=== PATIENT | female | born 1950 | race Caucasian/White ===

== ENCOUNTER 2018-05-31 16:49 | Emergency (ER) | payer MEDICARE, OTHER ==
[2018-05-31 17:02] VITALS: BP 137/80
--- NOTE | 2018-05-31 17:27 | EDM.PDOC ---
ED HPI GENERAL MEDICAL PROBLEM - General Chief Complaint: Skin Complaint Stated Complaint: RED/HOT ADRIAN ON LEFT BACK LEG Time Seen by Provider: 05/31/18 17:11 Source of Information: Reports: Patient History Limitations: Reports: No Limitations - History of Present Illness INITIAL COMMENTS - FREE TEXT/NARRATIVE: 67-year-old female presents the ED for evaluation of a large red spot which is moderately painful on the posterior aspect of her left leg. She states about 4 days ago did she noted a few small red spots which she will not call pustules in the popliteal fossa. Subsequently they seem to spread and the entire posterior aspect of her left thigh and popliteal fossa have not become very red and swollen and painful. Every step is painful. She doesn't feel ill in terms of flulike symptoms or appetite remains good. She has no chills or fever. She has never had sialitis before. 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 She is not diabetic. Onset: Gradual Onset Date: 05/28/18 Duration: Day(s):, Constant, Getting Worse Location: Reports: Lower Extremity, Left Quality: Reports: Ache, Burning, Throbbing Severity: Moderate (Slight throb. Out of 10) Improves with: Reports: Rest Worsens with: Reports: Other (Walking in her clothing rubbing on it bothers her. 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.) Left Leg Pain Score (Numeric/FACES): 8 - Related Data Allergies Allergy/AdvReac Type Severity Reaction Status Date / Time pineapple Allergy Hives Verified 05/31/18 16:57 Home Meds: Home Meds Clindamycin HCl 300 mg PO TID #21 capsule 05/31/18 [Rx] Doxycycline [Vibramycin] 100 mg PO BID #20 cap 05/31/18 [Rx] Past Medical History - Past Health History Medical/Surgical History: Denies Medical/Surgical History HEAD OF STOCK History: Reports: - Past Surgical History Female Surgical History: Reports: Section, Hysterectomy Social & Family History - Tobacco Use Smoking Status *Q: Former Smoker Used Tobacco, but Quit: Yes Month/Year Tobacco Last Used: 1998 - Recreational Drug Use Recreational Drug Use: No - Living Situation & Occupation Living situation: Reports: Occupation: Retired ED ROS GENERAL - Review of Systems Review Of Systems: See Below Constitutional: Denies: Fever, Chills, Malaise, Weakness, Fatigue, Decreased Appetite, Weight Loss HEENT: Reports: Glasses Respiratory: Reports: No Symptoms Cardiovascular: Reports: No Symptoms Endocrine: Reports: No Symptoms GI/Abdominal: Reports: No Symptoms : Reports: Frequency Musculoskeletal: Reports: Other (Pain left leg popliteal fossa and posterior left thigh) Skin: Reports: Erythema (There are diffuse erythema popliteal fossa and posterior left thigh almost up to the groin.) Neurological: Reports: No Symptoms Psychiatric: Reports: No Symptoms Hematologic/Lymphatic: Reports: No Symptoms Immunologic: Reports: No Symptoms ED EXAM, SKIN/RASH Exam: See Below Exam Limited By: No Limitations General Appearance: Alert, WD/WN, No Apparent Distress, Other (Vital signs show a temperature of 37.7 but she does not feel that warm to palpation.) Eye Exam: Bilateral Eye: Normal Inspection Respiratory/Chest: No Respiratory Distress, Lungs Clear, Normal Breath Sounds, No Accessory Muscle Use Cardiovascular: Normal Peripheral Pulses, Regular Rate, Rhythm, No Edema, No Gallop, No Murmur, No Rub Peripheral Pulses: 2+: Posterior Tibial (L), Posterior Tibial (R), Dorsalis Pedis (L), Dorsalis Pedis (R) GI/Abdominal: Normal Bowel Sounds, Soft, Non-Tender, No Organomegaly, No Abnormal Bruit, No Mass, Pelvis Stable, Other (Previous surgery of that of a cholecystectomy hysterectomy.) Back Exam: Normal Inspection, Full Range of Motion, Paraspinal Tenderness. No: CVA Tenderness (L), CVA Tenderness (R) Extremities: Other ( is significant erythema left popliteal fossa that spreads up the posterior medial thigh, almost to the buttock crease) Neurological: Alert, Oriented, CN II-XII Intact, Normal Cognition, No Motor/ Sensory Deficits, Abnormal Gait Psychiatric: Normal Affect, Normal Mood (Mild limping gait) Skin: Warm, Dry, Intact, Normal Color, No Rash Location, Skin: Lower Extremity, Left Characteristics: Macular, Confluent, Other (Erythematous) Associated features: Warmth, Crusting Course - Vital Signs Last Recorded V/S: Last Vital Signs Temp 37.7 C 05/31/18 16:57 Pulse 88 05/31/18 16:57 Resp 18 05/31/18 16:57 BP 137/80 05/31/18 16:57 Pulse Ox 100 05/31/18 16:57 - Orders/Labs/Meds Orders: Active Orders 24 hr Category Date Time Status Peripheral IV Care [RC] . DIRECTED Care 05/31/18 17:38 Active CULTURE BLOOD [BC] Stat Lab 05/31/18 17:55 Received CULTURE BLOOD [BC] Stat Lab 05/31/18 18:05 Received Sodium Chloride 0.9% [Saline Flush] Med 05/31/18 17:37 Active 10 ml FLUSH ASDIRECTED PRN Blood Culture x2 Reflex Set [OM.PC] Stat Oth 05/31/18 17:37 Ordered Peripheral IV Insertion Adult [OM.PC] Stat Oth 05/31/18 17:38 Ordered Medication Orders Sodium Chloride (Saline Flush) 10 ml FLUSH ASDIRECTED PRN PRN Reason: Keep Vein Open Last Admin: 05/31/18 17:53 Dose: 10 ml Labs: Laboratory Tests 05/31/18 05/31/18 05/31/18 Range/Units 17:44 17:44 17:44 WBC 7.44 (3.98-10.04) K/mm3 RBC 4.43 (3.98-5.22) M/mm3 Hgb 13.0 (11.2-15.7) gm/L Hct 39.5 (34.1-44.9) % MCV 89.2 (79.4-94.8) fl MCH 29.3 (25.6-32.2) pg MCHC 32.9 (32.2-35.5) g/dl RDW Std Deviation 52.3 H (36.4-46.3) fL Plt Count 184 (182-369) K/mm3 MPV 10.6 (9.4-12.3) fl Neutrophils % (Manual) 59 (40-60) % Band Neutrophils % 0 (0-10) % Lymphocytes % (Manual) 29 (20-40) % Atypical Lymphs % 0 % Monocytes % (Manual) 11 H (2-10) % Eosinophils % (Manual) 0 L (0.7-5.8) % Basophils % (Manual) 1 (0.1-1.2) Platelet Estimate Adequate Plt Morphology Comment Normal RBC Morph Comment Normal ESR 17 (0-20) mm/hr Sodium 139 (136-145) mEq/L Potassium 3.8 (3.5-5.1) mEq/L Chloride 105 (98-107) mEq/L Carbon Dioxide 27 (21-32) mEq/L Anion Gap 10.8 (5-15) BUN 15 (7-18) mg/dL Creatinine 0.9 (0.55-1.02) mg/dL Est Cr Clr Drug Dosing 44.52 mL/min Estimated GFR (MDRD) > 60 (>60) mL/min BUN/Creatinine Ratio 16.7 (14-18) Glucose 114 (80-115) mg/dL Calcium 9.0 (8.5-10.1) mg/dL Total Bilirubin 0.5 (0.2-1.0) mg/dL AST 14 L (15-37) U/L ALT 20 (14-59) U/L Alkaline Phosphatase 79 (46-116) U/L C-Reactive Protein 4.9 H* (<1.0) mg/dL Total Protein 7.6 (6.4-8.2) g/dl Albumin 3.4 (3.4-5.0) g/dl Globulin 4.2 gm/dL Albumin/Globulin Ratio 0.8 L (1-2) Meds: Medications Generic Name Dose Route Start Last Admin Trade Name Freq PRN Reason Stop Dose Admin Sodium Chloride 10 ml 05/31/18 17:37 05/31/18 17:53 Saline Flush FLUSH 10 ml ASDIRECTED PRN Administration Keep Vein Open Discontinued Medications Generic Name Dose Route Start Last Admin Trade Name Freq PRN Reason Stop Dose Admin Clindamycin Phosphate Confirm 05/31/18 17:47 05/31/18 17:53 Cleocin Administered 05/31/18 17:48 900 mg Dose Administration 900 mg .ROUTE .STK-MED ONE Doxycycline Hyclate 200 mg 05/31/18 17:57 05/31/18 18:08 Vibramycin PO 05/31/18 17:58 200 mg ONETIME ONE Administration Clindamycin Phosphate 900 mg/ 106 mls @ 100 mls/hr 05/31/18 17:38 05/31/18 17 :54 Sodium Chloride IV 05/31/18 18:41 Not Given ONETIME ONE Sodium Chloride Confirm 05/31/18 17:48 05/31/18 17:53 Normal Saline Administered 05/31/18 17:49 100 mls/hr Dose Administration 100 mls @ as directed .ROUTE .K-MED ONE - Radiology Interpretation Free Text/Narrative:: 67-year-old female presents to the ED with a red swollen left lower extremity. She states it started 4 days ago with a couple of papules in the popliteal fossa that subsequently seem to come confluent and now redness is spreading up the posterior aspect of her thigh almost up to the lower buttock crease. She registered a temperature of 37.7 but she has no signs of systemic illness. The source of the infection is unclear. It seems to have originated in the crease in the popliteal fossa. Skin overlaps in this area and I suspect it may have become secondarily infected. She will therefore have to have coverage for possible MRSA infection. Plan will be to do lab work including blood cultures 2. She'll be given clindamycin 900 mg IV and doxycycline 200 mg by mouth. - Re-Assessments/Exams Free Text/Narrative Re-Assessment/Exam: 05/31/18 18:29 Labs reveal a normal white count at 7.44 with 59% neutrophils and 0% band cells therefore no laboratory evidence of systemic infection.. Hemoglobin is 13.0 with hematocrit of 39.5. Platelet count 184,000. Sodium 139 with potassium 3.8. Chloride 105 with a bicarbonate 27. And a gap is 10.8 BUN was 15 with a creatinine of 0.9. GFR remains greater than 60. Glucose is 114 calcium 9.0. Liver function normal C-reactive protein mildly elevated at 4.9. Therefore the patient will be discharged home on doxycycline 100 mg twice daily for 10 days and clindamycin 300 mg 3 times a day for 7 days to clear up sialitis. Will have her follow-up with her personal care physician in 10 days' time or sooner if not looking markedly improved in 72 hours time. May continue use Motrin 600 mg every 6 hours to reduce pain and inflammation and fever if it develops. Departure - Departure Time of Disposition: 19:10 Disposition: Home, Self-Care 01 Condition: Fair Clinical Impression: Cellulitis of left leg without foot - Discharge Information *PRESCRIPTION DRUG MONITORING PROGRAM REVIEWED*: Not Applicable *COPY OF PRESCRIPTION DRUG MONITORING REPORT IN PATIENT SALMA: Not Applicable Prescriptions: Clindamycin HCl 300 mg PO TID #21 capsule Doxycycline [Vibramycin] 100 mg PO BID #20 cap Instructions: Cellulitis, Adult Referrals: PCP,Not In Area [Primary Care Provider] - Forms: ED Department Discharge Additional Instructions: Evaluation in the emergency him today in regards to development of infection on the posterior aspect of your left leg starting behind the knee and traveling up towards the buttock. The exact reason for this infection do occur is unclear. It may have been a scratch or a small poke anytime within the last 2 weeks to institute this kind of infection. Infection is called cellulitis which means spreading infection under the skin. It is almost always due to a staph aureus infection or sometimes more serious infection called methicillin-resistant staph aureus infection. Your lab tests proved that there was no signs of serious infection your bloodstream at this time. blood markers for inflammation were mildly elevated. Therefore you were treated with a dose of intravenous antibiotic clindamycin 900 mg and given doxycycline 200 mg by mouth. He will need to continue oral antibiotics clindamycin 300 mg 3 times daily for 7 days and doxycycline 100 mg twice daily for 10 days to clear up infection. May use Motrin 600 mg every 6 hours as needed to reduce pain and inflammation and/or fever.Suggest follow up with personal care physician if not markedly improved in 72 hours time otherwise in 10 days' time to make sure the infection has been completely eradicated. - My Orders Last 24 Hours: My Active Orders 05/31/18 17:37 Sodium Chloride 0.9% [Saline Flush] 10 ml FLUSH ASDIRECTED PRN Blood Culture x2 Reflex Set [OM.PC] Stat 05/31/18 17:38 Peripheral IV Care [RC] . DIRECTED Peripheral IV Insertion Adult [OM.PC] Stat 05/31/18 17:55 CULTURE BLOOD [BC] Stat 05/31/18 18:05 CULTURE BLOOD [BC] Stat - Assessment/Plan Last 24 Hours: My Active Orders 05/31/18 17:37 Sodium Chloride 0.9% [Saline Flush] 10 ml FLUSH ASDIRECTED PRN Blood Culture x2 Reflex Set [OM.PC] Stat 05/31/18 17:38 Peripheral IV Care [RC] . DIRECTED Peripheral IV Insertion Adult [OM.PC] Stat 05/31/18 17:55 CULTURE BLOOD [BC] Stat 05/31/18 18:05 CULTURE BLOOD [BC] Stat
[2018-05-31] MEDS ORDERED: Sodium Chloride 0.9% 10 ML Syringe FLUSH PRN (17:37)
[2018-05-31] MEDS ORDERED: Clindamycin Phosphate 900 MG in Sodium Chloride 0.9% 100 ML IV ONE (17:38)
[2018-05-31] MEDS ORDERED: Clindamycin Phosphate 900 MG/6 ML SDV ONE (17:47)
[2018-05-31] MEDS ORDERED: Sodium Chloride 0.9% 100 ML ONE (17:48)
[2018-05-31] MEDS ORDERED: Doxycycline 100 MG Cap PO ONE (17:57)
== END 2018-05-31 19:55 | disposition home or self-care (01) ==
LOC: JD.ED 16:49
DX: L03.116 Cellulitis of left lower limb (principal); Z87.891 Personal history of nicotine dependence; Z91.018 Allergy to other foods
CPT/HCPCS: 36415; 80053; 85007; 85027; 85652; 86140; 87040; 96365; 99283; A9270; J3490; J7030; 99284

== ENCOUNTER 2022-02-11 19:50 | Emergency (ER) | payer MEDICARE, OTHER ==
[2022-02-11 20:45] VITALS: BP 180/75; PULSE 80
== END 2022-02-11 21:21 | disposition home or self-care (01) ==
LOC: JD.ED 19:50
DX: L03.116 Cellulitis of left lower limb (principal); I10 Essential (primary) hypertension; Z91.018 Allergy to other foods; Z90.710 Acquired absence of both cervix and uterus
CPT/HCPCS: 99282